=== PATIENT | male | born 1950 | race African-American/Black ===

== ENCOUNTER 2017-05-30 22:00 | Observation (INO) | payer MEDICARE ==
[~2017-05-30] VITALS: Ht 175.3 cm; Wt 113.4 kg
[~2017-05-30 22:00] MED LIST: AMARYL1 M1 PO; AMARYL2 MG PO; AMLODIPINE10 MG PO; AMOXICILLIN500 M2 PO; AMOXICILLIN500 MG PO; AUGMENTIN875TAB PO; BENAZEPRIL HCL40 MG PO; BENAZEPRIL40 M1 PO; CHLORTHALIDONE25 MG PO; CIPRODEX1 ML AS; FEXOFENADINE H180 MG PO; FLEXERIL PO; FLONASE NASAL50 MCG; FLONASE0.05 %; GLIPIZIDE ER2.5 MG PO; GLIPIZIDE5 M2 PO; HYDROCHLOROT25 MG PO; LIPITOR40 MG PO; LOTENSIN40 MG PO; MAXZIDE OR; MEDDOSEPAK PO; METFORMIN1000 MG PO; METFORMIN850 MG PO; NASONEX50 MCG/AC; PANTOPRAZOLE SO40 MG PO; PLAVIX75 MG OR; PLAVIX75 MG PO; PRILOSEC40 MG PO; PROTONIX40 M2 PO; TENORMIN PO; TENORMIN25 MG OR; TRICOR145 MG OR; ULTRAM50 M1 PO; VESICARE10 MG PO; VIAGRA100 MG PO; VIAGRA25 MG PO; ZANTAC150 MG OR; ZOCOR40 MG OR
--- NOTE | 2017-05-30 22:00 | NUR ---
PATIENT ASSISTED OUT OF VEHICLE AND BROUGHT TO TREATMENT AREA. UNDRESSED INTO A GOWN. PLACED ON PORTABLE MONITOR WHILE ER MD AT BEDSIDE FOR EVAL. STROKE ALERT CALLED AND PATIENT READIED OR TRANSPORT TO [facility] VIA STRETCHER.
--- NOTE | 2017-05-30 22:20 | NUR ---
RETURN TO DEPARTMENT. PLACED ON MONITOR. AT BEDSIDE.
--- NOTE | 2017-05-30 22:30 | NUR ---
PATIENT [facility] SCALE A 0. PATIENT ONLY C/O NECK PAIN AT THIS TIME. AWARE OF PENDING TELESTROKE WITH NEUROLOGIST.
[2017-05-30] MEDS ORDERED: GABAPENTIN100 MG PO (22:47)
[2017-05-30] MEDS ORDERED: METOPROL TAR25 MG PO (22:48)
[2017-05-30] MEDS ORDERED: PANTOPRAZOLE SO40 MG PO (22:49)
[2017-05-30] MEDS ORDERED: GLIMEPIRIDE2 MG PO (22:49)
[2017-05-30] MEDS ORDERED: CYCLOBENZAPR10 MG PO (22:50)
--- NOTE | 2017-05-30 22:50 | NUR ---
UNABLE TO CONNECT WITH TELESTROKE. ABLE HOWEVER TO PERFORM IT THROUGH FACETIME. DR LEE TO EVALUATE PATIENT. HOSPITALITY TEAM MEMBER ELEVATED. ORDERS RECEIVED TO GIVE LABETALOL 10MG IV. GERMAN PAUSED WHILE MEDICATING FOR BP.
[2017-05-30 22:54] LABS: HEMATOCRIT 43.6 % (39.0-50.0); HEMOGLOBIN 14.7 g/dl (14.0-18.0); IMMATURE GRANULOCYTES 0.2 % (0.0-1.0); MEAN CELL VOLUME 95.2 fL CALC (80.0-100.0); MEAN CORPUSCULAR HGB 32.1 pG CALC (26.0-32.0); MEAN CORPUSCULAR HGB CONC 33.7 g/L CALC (32.0-36.0); NEUT# 1.91 thou/uL (1.82-7.42); RED BLOOD COUNT 4.58 mill/uL (4.70-6.10); RED CELL DISTRI WIDTH 12.5 % (11.5-15.5)
--- NOTE | 2017-05-30 22:58 | NUR ---
PATIENT MEDICATED ORDERED AND BP IMPROVED. TELESTROKE CONTINUED VIA [employer]. [facility] WITH NEUROLOGIST Cruz 2.
--- NOTE | 2017-05-30 23:10 | NUR ---
GERMAN COMPLETED. DR LEE EXPLAINED FINDINGS AND PLAN OF CARE WITH PATIENT WITH VERBAL UNDERSTANDING.
[2017-05-30 23:12] LABS: ALBUMIN 3.8 g/dL (3.2-5.0); ALKALINE PHOSPHATASE 56 u/l (38-126); ANION GAP 14 (6-22 (CALC)); BILIRUBIN, TOTAL 0.8 mg/dL (0.0-1.4); BUN 20 mg/dL (8-23); BUN/CREATININE RATIO 14 (12-20 (CALC)); CALCIUM 9.4 mg/dL (8.4-10.2); CARBON DIOXIDE 28 mmol/l (22-30); CHLORIDE 104 mmol/l (95-108); CREATININE 1.4 mg/dL (0.7-1.3); GFR 51 ML/MIN (>=60 (CALC)); GFR FOR AFR.AMER. > 60 ML/MIN (>=60 (CALC)); GLUCOSE 96 mg/dL (82-115); POTASSIUM 4.5 mmol/l (3.5-5.1); PROTHROMBIN TIME 10.8 SECONDS (9.0-12.5); SGOT/AST 28 u/l (19-48); SGPT/ALT 26 u/l (11-66); SODIUM 142 mmol/l (137-146); TOTAL PROTEIN 7.2 g/dL (6.3-8.2)
--- NOTE | 2017-05-30 23:18 | NUR ---
PATIENT'S BP ELEVATED, ER MD AWARE AND ORDERS RECEIVED FOR ADDITIONAL LABETALOL IV.
--- NOTE | 2017-05-30 23:24 | NUR ---
PATIENT MEDICATED WITH 20MG LABETALOL IV. WILL MONITOR FOR EFFECT.
--- NOTE | 2017-05-30 23:35 | NUR ---
PATIENT IS SLEEPY, FALLS ASLEEP QUICKLY, DOES HOWEVER AWAKEN TO NAME. BLOOD SUGAR CHECKED. BGL 102. STATES PATIENT GOES TO BED FAIRLY EARLY NORMALLY AND THAT HE IS TIRED.
[2017-05-31] VITALS (29 sets, daily range): BP systolic 15–169; BP diastolic 77–99
--- NOTE | 2017-05-31 00:15 | NUR ---
BP RISING. CARDENE GTT STARTED. WILL MONITOR FOR EFFECT AND TITRATE NEEDED. PATIENT CONTINUES TO C./O NECK SORENESS. NO NEURO DEFICITS NOTED.
--- NOTE | 2017-05-31 00:20 | NUR ---
REPORT CALLED TO [facility]. PATIENT READIED FOR TRANSPORT TO FLOOR VIA STRETCHER, ON MONITOR, WITH RN.
--- NOTE | 2017-05-31 00:30 | NUR ---
CARDENE GTT INCREASED TO 7.5 MG. WILL CONTINUE TO MONITOR FOR EFFECT.
--- NOTE | 2017-05-31 01:00 | NUR ---
PT. ARRIVES VIA STRETCHER FROM ICU. AMBULATORY WITH SLOW, STEADY GAIT FROM ER STRETCHER TO DIGITAL STANDING SCALE AND THEN TO ICU BED. NO ASSISTANCE. PLACED BACK ON THE CARDENE DRIP AT 7.5 MCG ON ARRIVAL TO BED. BP STABLE AT THIS TIME. 148/77. NO NEURO DEFICITS NOTED. YANES. GERALD. GOOD DISTIL CAP REFILL, PULSES INTACT. STRONG JACQUARD LOOM WEAVER STRENGTH BILATERALLY. FACIAL SYMMETRY NOTED. HEEL TO [place] WITHOUT DIFFICULTIES. NO DRIFT NOTED TO UPPER OR LOWER EXT BILATERALLY AT THIS TIME. HR STABLE SINUS IN THE 70'S. SPO2 99% ON RA. PT. ORIENTED TO ROOM AND SITUATION. LUNGS CLEAR TO AUSCULTATION. CALL LIGHT REMAINS WITHIN REACH. WILL CONTINUE TO CLOSELY MONITOR AND TITRATE DRIP NECESSARY.
--- NOTE | 2017-05-31 01:15 | NUR ---
CARDENE DRIP DECREASED TO 5 MCG AT THIS TIME BP 120/70'S. WILL CONTINUE TO CLOSELY MONITOR.
--- NOTE | 2017-05-31 02:13 | NUR ---
PT. REMAINS ROUSABLE TO LIGHT VERBAL STIMULI. BP REMAINS STABLE AT THIS TIME. 135/77. WILL CONTINUE TO ASSESS AND TITRATE DRIP NECESSARY. NO NEURO DEFICITS NOTED AT THIS TIME. CALL LIGHT REMAINS WITHIN REACH.
--- NOTE | 2017-05-31 02:25 | NUR ---
PT. C/O EPIGASTRIC DISCOMFORT. STATES HAS HAD THIS TYPE OF DISCOMFORT PREVIOUSLY AND HAS TAKEN GAS X AND IT HAS HELPED. NEW ORDERS RECEIVED AT THIS TIME. WILL MEDICATE ORDERED WHEN [place] [facility] PROFILES MED.
--- NOTE | 2017-05-31 03:05 | NUR ---
PT. STATES HE IS NOW PAIN FREE AFTER THE GI COCKTAIL. WILL CONTINUE TO ASSESS. CARDENE DRIP DECREASED TO 1.25 MG/HR BP IS 130/70'S.
--- NOTE | 2017-05-31 03:15 | NUR ---
PT. REMAINS ABD PAIN FREE AT THIS TIME. NEURO STATUS INTACT, NO DEFICITS NOTED. URINAL EMPTIED OF 800 CC STRAW COLORED URINE. CALL LIGHT REMAINS WITHIN REACH. WILL CONTINUE TO MONITOR.
--- NOTE | 2017-05-31 04:39 | NUR ---
PT. REMAINS AWAKE, ALERT, ORIENTED X 3. SKIN WARM AND DRY. GERALD. AFEBRILE. NO NEURO DEFICITS NOTED. YANES. REMAINS SINUS AT 70. CARDENE DRIP CONTINUES AT 1..25 MG/HR. WILL CONTINUE TO ASSESS NEED FOR TITRATION.
--- NOTE | 2017-05-31 05:41 | NUR ---
PT. RESTING IN BED WATCHING TELEVISION AT THIS TIME. NO NEURO DEFICITS NOTED. BP 160/80. CARDENE DRIP INFUSING AT 1.25 MG/HR AT THIS TIME. YANES. CALL LIGHT REMAINS WITHIN REACH.
[2017-05-31 06:50] LABS: HEMATOCRIT 45.5 % (39.0-50.0); HEMOGLOBIN 15.2 g/dl (14.0-18.0); IMMATURE GRANULOCYTES 0.2 % (0.0-1.0); MEAN CELL VOLUME 94.6 fL CALC (80.0-100.0); MEAN CORPUSCULAR HGB 31.6 pG CALC (26.0-32.0); MEAN CORPUSCULAR HGB CONC 33.4 g/L CALC (32.0-36.0); NEUT# 2.06 thou/uL (1.82-7.42); RED BLOOD COUNT 4.81 mill/uL (4.70-6.10); RED CELL DISTRI WIDTH 12.4 % (11.5-15.5)
[2017-05-31 07:08] LABS: ALKALINE PHOSPHATASE 68 u/l (38-126); ANION GAP 13 (6-22 (CALC)); BILIRUBIN, TOTAL 0.9 mg/dL (0.0-1.4); BUN 16 mg/dL (8-23); BUN/CREATININE RATIO 15 (12-20 (CALC)); CALCIUM 9.2 mg/dL (8.4-10.2); CALCULATED LDLCHOLESTEROL 123 mg/dL (62-129 (CALC)); CARBON DIOXIDE 28 mmol/l (22-30); CHLORIDE 102 mmol/l (95-108); CHOLESTEROL HDL RATIO 4.7 (<4.4 (CALC)); CREATININE 1.1 mg/dL (0.7-1.3); GFR > 60 ML/MIN (>=60 (CALC)); GFR FOR AFR.AMER. > 60 ML/MIN (>=60 (CALC)); GLUCOSE 132 mg/dL (82-115); HDL CHOLESTEROL 41 mg/dL (>=40); POTASSIUM 3.9 mmol/l (3.5-5.1); SGOT/AST 24 u/l (19-48); SGPT/ALT 28 u/l (11-66); SODIUM 140 mmol/l (137-146); TOTAL CHOLESTEROL 190 mg/dl (0-199); TOTAL PROTEIN 7.5 g/dL (6.3-8.2); TOTAL TRIGLYCERIDES 130 mg/dl (30-149); VLDL CHOLESTROL 26 mg/dl (4-45 (CALC))
--- NOTE | 2017-05-31 07:35 | NUR ---
PT RESTING IN BED, ALERT AND ORIENTED, AM ASSESSMENT COMPLETED, SEE INTERVENTIONS, NO NEURO DEFICITS NOTED AT THIS TIME, LUNGS CLEAR NO SHORTNESS OF BREATH OR DISTRESS NOTED, ABD SOFT AND BOWEL SOUNDS ACTIVE, PT USES URINAL AND VOIDS LARGE AMOUNTS CLEAR PALE YELLOW URINE W/O INCIDENT, BRITTANI ALONZO OCNTINUES WITH B/P CONTROLLED WELL, SEE INTERVENTIONS, SAFETY MEASURES REINFORCED, CALL REED WITHIN REACH
--- NOTE | 2017-05-31 08:15 | NUR ---
RESTING IN BED, INTO SEE PT, PLAN OF CARE DISCUSSED INCLUDING MEDICATIONS CHANGES, PT VERBALIZES UNDERSTANDING.
--- NOTE | 2017-05-31 08:51 | NUR ---
RESTING INBED, OFFERS NO NEW COMPLAINTS, CALL REED WITHIN REACH
--- NOTE | 2017-05-31 09:33 | NUR ---
PT TOOK AM MEDICATIONS WELL, OFFERS NO NEW COMAPLINTS, PNEUMO VACCINE GIVEN ORDERED, CALL REED WITHIN REACH
--- NOTE | 2017-05-31 10:35 | NUR ---
PT RESTING OFFERS NO NEW COMPLAINTS, CALL INT O REGARDING COMPLAINTS OF RIGHT SIDED NECK DISCOMFORT DIET ORDERED AT THIS TIME, CONTINUE TO MONITOR BP CLOSELY AND ZAIN PETER. CALL REED WITHIN REACH
--- NOTE | 2017-05-31 11:40 | NUR ---
SET UP ASSIST PROVIDED FOR MEAL, VISITOR AT BEDSIDE, BP MAINTAINED CARDENE STOPPED AT THIS TIME, PT AWARE OF PLANNED MRI, WILL CONTINUE TO MONITOR, NEURO CHECKS REMAIN NEGATIVE NO DEFICITS NOTED.
--- NOTE | 2017-05-31 12:55 | NUR ---
PT RESTING PLANNED MRI AT 1300, PT AWARE CONTINUES JOSE LUIS TOLERAT CARDENE OFF, APPETITE GOOD AND TOLERATED LUNCH WELL, CALL REED WITHIN REACH
--- NOTE | 2017-05-31 13:06 | NUR ---
PT TO MRI VIA WHEELCHAIR. WITH VOLUNTEER
--- NOTE | 2017-05-31 14:40 | NUR ---
pt back for mri, tolerated well, call maria within reach, will continue to monitor.
--- NOTE | 2017-05-31 14:57 | NUR ---
bp maintained, with cardene off, sitting up in recliner, call maria within reach
--- NOTE | 2017-05-31 17:06 | NUR ---
PT REMAINS SITTING UP IN RECLINER, BP REMAINS STABLE, OFFERS NO NEW COMPLAINTS, CALL REED WITHIN REACH
--- NOTE | 2017-05-31 17:40 | NUR ---
SET UP ASSIST PROVIDED FOR OM MEAL, REMAINS SITTING UP IN THE RECLINER, CALL REED WITHIN REACH
--- NOTE | 2017-05-31 18:03 | NUR ---
SET UP ASSIST PROVIDED FOR PM MEAL, APPETITE GOOD, CALL REED WITHIN REACH
--- NOTE | 2017-05-31 18:45 | NUR ---
RECEIVED REPORT FROM JACOB BLACK RN. INTRODUCED TO PT, FOUND HIM ALERT AND ORIENTED X3, SITTING UP IN RECLINER, DENIES PAIN OR OTHER DISCOMFORT, DENIES ANY SIDE WEAKNESS, NO NEURO DEFICITS NOTED AT THIS TIME, WILL FOLLOW UP WITH ASSESSMENT AND MED SCHEDULE, ENCOURAGED TO CALL IF NEEDED. CALL REED AT REACH.
--- NOTE | 2017-05-31 21:20 | NUR ---
PT C/O CRAMPING PAIN TO RUQ, MEDICATED PER DR. SANCHEZ, SOME FACIAL DISTRESS NOTED, RATES IT 12/23, DESCRIBES IT "LIKE A GAS" "HURT MORE IF I BEND." WILL CONTINUE TO REASSESS. CALL REED AT REACH.
--- NOTE | 2017-05-31 23:30 | NUR ---
PT STATES PAIN IS BETTER, NO DISTRESS NOTED, SB ON MONITOR 55, VSS, ENCOURAGED TO CALL IF NEEDED, VOICES UNDERSTANDING.
[2017-06-01] VITALS (15 sets, daily range): BP systolic 124–172; BP diastolic 58–95
--- NOTE | 2017-06-01 02:01 | NUR ---
PT APPEARS TO BE SLEEPING WITH EYES CLOSED, VOICES NO COMPLAINTS, RESP ARE EVEN AND UNLABORED, SB ON MONITOR, HR 49-56, NO S/S OF DISTRESS NOTED, WILL CALL REED AT REACH.
--- NOTE | 2017-06-01 03:51 | NUR ---
SB ON MONITOR, HR DECREASING TO 45-56, PT RESTING IN BED QUIETLY, A/OX3, AROUSES TO VERBAL STIMULI, DENIES PAIN OR SOB, NO DISTRESS NOTED, WILL CONTINUE TO MONITOR. CALL REED AT REACH.
--- NOTE | 2017-06-01 04:15 | NUR ---
ANSWERED PT CALL LIGHT, VOIDED IN URINAL, VOICES NO COMPLAINTS, SB ON MONITOR HR 49-59, DENIES OTHER NEEDS, RESP ARE EVEN AND UNLABORED, WILL CONTINUE TO MONITOR.
[2017-06-01 05:19] LABS: HEMATOCRIT 48.1 % (39.0-50.0); IMMATURE GRANULOCYTES 0.2 % (0.0-1.0); MEAN CELL VOLUME 94.5 fL CALC (80.0-100.0); MEAN CORPUSCULAR HGB 31.4 pG CALC (26.0-32.0); MEAN CORPUSCULAR HGB CONC 33.3 g/L CALC (32.0-36.0); NEUT# 2.38 thou/uL (1.82-7.42); RED BLOOD COUNT 5.09 mill/uL (4.70-6.10); RED CELL DISTRI WIDTH 12.5 % (11.5-15.5)
[2017-06-01 05:31] LABS: ANION GAP 16 (6-22 (CALC)); BUN 23 mg/dL (8-23); BUN/CREATININE RATIO 16 (12-20 (CALC)); CALCIUM 9.5 mg/dL (8.4-10.2); CARBON DIOXIDE 28 mmol/l (22-30); CHLORIDE 100 mmol/l (95-108); CREATININE 1.4 mg/dL (0.7-1.3); GFR 51 ML/MIN (>=60 (CALC)); GFR FOR AFR.AMER. > 60 ML/MIN (>=60 (CALC)); GLUCOSE 129 mg/dL (82-115); POTASSIUM 4.5 mmol/l (3.5-5.1); SODIUM 140 mmol/l (137-146)
--- NOTE | 2017-06-01 06:32 | NUR ---
PT SLEEPING WITH EYES CLOSED, SNORING LOUDLY, REPORTS NO COMPLAINTS, RESP ARE EVEN AND UNLABORED, CALL REED AT REACH.
--- NOTE | 2017-06-01 07:20 | NUR ---
PT RESTING IN BED, ALERT AND ORIENTED, AM ASSESSMENT COMPLETED, SEE INTERVENTIONS, NO NEURO DEFICITS NOTED AT THIS TIME, LUNGS CLEAR NO SHORTNESS OF BREATH OR DISTRESS NOTED, ABD SOFT AND BOWEL SOUNDS ACTIVE, PT USES URINAL AND VOIDS ADEQUATE AMOUNTS CLEAR PALE YELLOW URINE W/O INCIDENT, B/P REMAINS STABLE ON CURRENT PO MEDICATION REGIMEN, SEE INTERVENTIONS FOR DETIALS, SAFETY MEASURES REINFORCED, CALL REED WITHIN REACH
--- NOTE | 2017-06-01 07:45 | NUR ---
SET UP ASSIST PROVIDED FOR AM MEAL
--- NOTE | 2017-06-01 08:25 | NUR ---
INTO SEE PATIENT
--- NOTE | 2017-06-01 08:59 | NUR ---
PT AWARE OF PENDING D/C TO BE IN AROUND 1130 AM.
--- NOTE | 2017-06-01 11:35 | NUR ---
SET ASSIST PROVIDED FOR AFTERNOON MEAL
--- NOTE | 2017-06-01 12:13 | NUR ---
SET UP ASSIST PROVIDED FOR AFTERNOON MEAL, CALL REED WITHIN REACH, AWARE OF PLANNED D/C AND AWAITING SPOUSE FOR TRANSPORT
--- NOTE | 2017-06-01 13:00 | NUR ---
Discharge instructions given. Patient verbalizes understanding of same. Discharged in stable condition via Wheelchair to Home with family. All belongings sent with pt.
== END 2017-06-01 13:00 | disposition home or self-care (01) ==
LOC: ED 22:00 → ED-I 23:00 → ED 23:28 → ICU 23:29
PROVIDERS: Emergency Medicine; ADMIT Internal Medicine Geriatric Medicine; ATTEND Internal Medicine Geriatric Medicine
PROC: 3E0234Z Introduction of Serum, Toxoid and Vaccine into Muscle, Percutaneous Approach (ICD-10-PCS; principal; 2017-05-31)
DX: G45.9 Transient cerebral ischemic attack, unspecified (principal); I10 Essential (primary) hypertension; E78.5 Hyperlipidemia, unspecified; E11.9 Type 2 diabetes mellitus without complications; I25.10 Atherosclerotic heart disease of native coronary artery without angina pectoris; M19.90 Unspecified osteoarthritis, unspecified site; K21.9 Gastro-esophageal reflux disease without esophagitis; K27.9 Peptic ulcer, site unspecified, unspecified as acute or chronic, without hemorrhage or perforation; Z95.1 Presence of aortocoronary bypass graft; Z23 Encounter for immunization

== ENCOUNTER 2019-11-15 | Emergency (ER) | payer MEDICARE ==
[~2019-11-15] MED LIST changes: +CYCLOBENZAPR10 MG PO; +GABAPENTIN300 M2 PO; +GLIMEPIRIDE2 MG PO; +METOPROL TAR25 MG PO
[2019-11-15 13:39] LABS: HEMOGLOBIN 14.1 g/dl (14.0-18.0); IMMATURE GRANULOCYTES 0.2 % (0.0-5.0); MEAN CELL VOLUME 93.3 fL CALC (80.0-100.0); MEAN CORPUSCULAR HGB 31.3 pG CALC (26.0-32.0); MEAN CORPUSCULAR HGB CONC 33.5 g/dL CAL (32.0-36.0); NEUT# 1.93 thou/uL (1.82-7.42); RED BLOOD COUNT 4.51 mill/uL (4.70-6.10); RED CELL DISTRI WIDTH 13.2 % (11.5-15.5)
[2019-11-15 13:45] LABS: HEMATOCRIT 42.1 % (39.0-50.0)
[2019-11-15 13:50] LABS: ALBUMIN 3.9 g/dL (3.2-5.0); ALKALINE PHOSPHATASE 53 u/l (38-126); ANION GAP 13 (6-22 (CALC)); BILIRUBIN, TOTAL 0.8 mg/dL (0.0-1.4); BUN 20 mg/dL (8-23); BUN/CREATININE RATIO 16 (12-20 (CALC)); CHLORIDE 107 mmol/l (95-108); CREATININE 1.2 mg/dL (0.7-1.3); GFR 60 ML/MIN (>=60 (CALC)); GFR FOR AFR.AMER. > 60 ML/MIN (>=60 (CALC)); LIPASE 99 u/l (23-300); POTASSIUM 4.1 mmol/l (3.5-5.1); SGOT/AST 23 u/l (19-48); SODIUM 136 mmol/l (137-146); TOTAL PROTEIN 7.4 g/dL (6.3-8.2)
[2019-11-15 13:53] LABS: PROTHROMBIN TIME 10.5 SECONDS (9.0-12.5)
[2019-11-15 13:54] LABS: GFR 60 ML/MIN (>=60 (CALC)); GFR FOR AFR.AMER. > 60 ML/MIN (>=60 (CALC))
[2019-11-15 13:55] LABS: CARBON DIOXIDE 20 mmol/l (22-30)
[2019-11-15] MEDS ORDERED: CARVEDILOL25 MG PO (13:57)
[2019-11-15] MEDS ORDERED: BAYER CHEWABLE81 MG PO (13:58)
[2019-11-15] MEDS ORDERED: HYDRALAZINE HC100 MG PO (13:58)
== END 2019-11-15 15:38 | disposition short-term general hospital (02) ==
PROVIDERS: Family Medicine
DX: I63.89 Other cerebral infarction (principal); G81.91 Hemiplegia, unspecified affecting right dominant side; R29.703 NIHSS score 3; E11.9 Type 2 diabetes mellitus without complications; I10 Essential (primary) hypertension; Z79.84 Long term (current) use of oral hypoglycemic drugs; Z79.02 Long term (current) use of antithrombotics/antiplatelets
CPT/HCPCS: J2997

== ENCOUNTER 2019-11-25 | Emergency (ER) | payer MEDICARE ==
[~2019-11-25] MED LIST changes: +BAYER CHEWABLE81 MG PO; +CARVEDILOL25 MG PO; +HYDRALAZINE HC100 MG PO
[2019-11-25] MEDS ORDERED: CIPROFLOXACN500 MG PO (23:49)
[2019-11-25] MEDS ORDERED: CLEOCIN300 MG PO (23:49)
[2019-11-27] MEDS ORDERED: HYDRALAZINE10 MG PO (08:26)
[2019-11-27] MEDS ORDERED: METFORMIN500 M2 PO (08:26)
[2019-11-27] MEDS ORDERED: GABAPENTIN100 MG PO (08:27)
[2019-11-27] MEDS ORDERED: CARVEDILOL25 MG PO (08:28)
[2019-11-27] MEDS ORDERED: CLOPIDOGREL75 MG PO (08:28)
[2019-11-27] MEDS ORDERED: LISINOPRIL20 MG PO (08:30)
[2019-11-27] MEDS ORDERED: CIPROFLOXACN500 MG PO (08:30)
[2019-11-27] MEDS ORDERED: ATORVASTATIN CA80 MG PO (08:31)
[2019-11-27] MEDS ORDERED: CLINDAMYCIN HC150 MG PO (08:31)
[2019-11-27] MEDS ORDERED: ASPIRIN ADULT L81 M2 PO (08:32)
[2019-11-27] MEDS ORDERED: COQ-1050 MG PO (08:32)
== END 2019-11-26 00:10 | disposition home or self-care (01) ==
PROC: 0HQFXZZ Repair Right Hand Skin, External Approach (ICD-10-PCS; principal; 2019-11-25)
DX: S61.252A Open bite of right middle finger without damage to nail, initial encounter (principal); S61.254A Open bite of right ring finger without damage to nail, initial encounter; W54.0XXA Bitten by dog, initial encounter; Y93.89 Activity, other specified; Y92.009 Unspecified place in unspecified non-institutional (private) residence as the place of occurrence of the external cause

== ENCOUNTER 2019-11-27 | Emergency (ER) | payer MEDICARE ==
[~2019-11-27] MED LIST changes: +CIPROFLOXACN500 MG PO; +CLEOCIN300 MG PO
[2019-11-27] MEDS ORDERED: HYDRALAZINE10 MG PO (08:26)
[2019-11-27] MEDS ORDERED: METFORMIN500 M2 PO (08:26)
[2019-11-27] MEDS ORDERED: GABAPENTIN100 MG PO (08:27)
[2019-11-27] MEDS ORDERED: CARVEDILOL25 MG PO (08:28)
[2019-11-27] MEDS ORDERED: CLOPIDOGREL75 MG PO (08:28)
[2019-11-27] MEDS ORDERED: CIPROFLOXACN500 MG PO (08:30)
[2019-11-27] MEDS ORDERED: LISINOPRIL20 MG PO (08:30)
[2019-11-27] MEDS ORDERED: CLINDAMYCIN HC150 MG PO (08:31)
[2019-11-27] MEDS ORDERED: ATORVASTATIN CA80 MG PO (08:31)
[2019-11-27] MEDS ORDERED: ASPIRIN ADULT L81 M2 PO (08:32)
[2019-11-27] MEDS ORDERED: COQ-1050 MG PO (08:32)
[2019-11-27 09:19] LABS: HEMATOCRIT 41.9 % (39.0-50.0); HEMOGLOBIN 13.8 g/dl (14.0-18.0); IMMATURE GRANULOCYTES 0.5 % (0.0-5.0); MEAN CELL VOLUME 93.3 fL CALC (80.0-100.0); MEAN CORPUSCULAR HGB 30.7 pG CALC (26.0-32.0); MEAN CORPUSCULAR HGB CONC 32.9 g/dL CAL (32.0-36.0); NEUT# 5.14 thou/uL (1.82-7.42); RED BLOOD COUNT 4.49 mill/uL (4.70-6.10)
[2019-11-27 09:28] LABS: CREATININE 1.5 mg/dL (0.7-1.3); POTASSIUM 4.1 mmol/l (3.5-5.1)
== END 2019-11-27 11:10 ==
PROVIDERS: Family Medicine
DX: S61.252A Open bite of right middle finger without damage to nail, initial encounter (principal); S61.254A Open bite of right ring finger without damage to nail, initial encounter; L03.011 Cellulitis of right finger; E11.40 Type 2 diabetes mellitus with diabetic neuropathy, unspecified; I10 Essential (primary) hypertension; W54.0XXA Bitten by dog, initial encounter; Z79.84 Long term (current) use of oral hypoglycemic drugs

== ENCOUNTER 2021-03-12 19:10 | Emergency (ER) | payer MEDICARE ==
[~2021-03-12] VITALS: Ht 175.3 cm; Wt 102.0 kg
[~2021-03-12 19:10] MED LIST changes: +ASPIRIN ADULT L81 M2 PO; +ATORVASTATIN CA80 MG PO; +CLINDAMYCIN HC150 MG PO; +CLOPIDOGREL75 MG PO; +COQ-1050 MG PO; +GABAPENTIN100 MG PO; +HYDRALAZINE10 MG PO; +LISINOPRIL20 MG PO; +METFORMIN500 M2 PO
[2021-03-12] MEDS ORDERED: JARDIANCE10 MG (20:07)
[2021-03-12 20:28] LABS: IMMATURE GRANULOCYTES 0.2 % (0.0-5.0); MEAN CELL VOLUME 94.4 fL CALC (80.0-100.0); MEAN CORPUSCULAR HGB 31.4 pG CALC (26.0-32.0); MEAN CORPUSCULAR HGB CONC 33.3 g/dL CAL (32.0-36.0); NEUT# 4.21 thou/uL (1.82-7.42); RED BLOOD COUNT 5.16 mill/uL (4.70-6.10); RED CELL DISTRI WIDTH 13.3 % (11.5-15.5)
[2021-03-12 20:30] LABS: HEMATOCRIT 48.7 % (39.0-50.0); HEMOGLOBIN 16.2 g/dl (14.0-18.0)
[2021-03-12 20:43] LABS: URINE BILIRUBIN - DIPSTICK NEGATIVE (NEGATIVE); URINE BLOOD DIPSTICK SMALL (NEGATIVE); URINE COLOR YELLOW; URINE GLUCOSE - DIPSTICK 500 mg/dL (NEGATIVE); URINE KETONE TRACE mg/dL (NEGATIVE); URINE LEUK ESTERASE NEGATIVE (NEGATIVE); URINE PROTEIN - DIPSTICK 100 mg/dL (NEG-TRACE); URINE SPECIFIC GRAVITY 1.025; URINE UROBILINOGEN - DIPSTICK 0.2 E.U./dL (0.2)
[2021-03-12 20:44] LABS: URINE NITRITE - DIPSTICK NEGATIVE (Negative)
[2021-03-12 20:45] LABS: ALBUMIN 4.2 g/dL (3.2-5.0); ALKALINE PHOSPHATASE 76 u/l (38-126); ANION GAP 13 (6-22 (CALC)); BUN 16 mg/dL (8-23); BUN/CREATININE RATIO 15 (12-20 (CALC)); CARBON DIOXIDE 24 mmol/l (22-30); CHLORIDE 97 mmol/l (95-108); CREATININE 1.1 mg/dL (0.7-1.3); GFR > 60 ML/MIN (>=60 (CALC)); GFR FOR AFR.AMER. > 60 ML/MIN (>=60 (CALC)); POTASSIUM 4.2 mmol/l (3.5-5.1); SGOT/AST 39 u/l (19-48); SODIUM 129 mmol/l (137-146); TOTAL PROTEIN 8.5 g/dL (6.3-8.2)
[2021-03-12 20:46] LABS: BILIRUBIN, TOTAL 1.2 mg/dL (0.0-1.4)
[2021-03-12 21:01] LABS: URINE SQUAMOUS EPITHELIAL CELL FEW EPI/hpf (0-FEW); URINE WBC 0-2 WBC/hpf (0-5)
[2021-03-12 21:24] LABS: CPK 294 u/l (52-200)
[2021-03-12 21:37] LABS: MYOGLOBIN 56 ng/mL (0 - 121)
[2021-03-12 21:59] LABS: TSH, 3RD GENERATION 0.18 uIU/mL (0.47 - 4.68)
[2021-03-13 01:00] VITALS: BP 145/65
== END 2021-03-13 01:15 | disposition short-term general hospital (02) ==
LOC: ED 19:10
PROVIDERS: Family Medicine
DX: I62.00 Nontraumatic subdural hemorrhage, unspecified (principal); I10 Essential (primary) hypertension; E11.40 Type 2 diabetes mellitus with diabetic neuropathy, unspecified; T46.5X6A Underdosing of other antihypertensive drugs, initial encounter; Z91.128 Patient's intentional underdosing of medication regimen for other reason; Z79.84 Long term (current) use of oral hypoglycemic drugs; Z20.822 Contact with and (suspected) exposure to COVID-19